=== PATIENT | male | born 1945 | race Caucasian/White ===

== ENCOUNTER 2023-06-08 06:10 | Day surgery (SDC) | payer MEDICARE, OTHER, SELFPAY ==
[2023-06-01 10:26] VITALS: BMI 43.1
[2023-06-08] VITALS (9 sets, daily range): BP systolic 109–148; BP diastolic 42–60
[2023-06-08] MEDS: NSS 500 IV (07:22)
--- NOTE | 2023-06-08 10:23 | ITS.CL.PACE ---
[employer] - Pacemaker Implant
Pacemaker Implant
Procedure Report:
Date of Procedure: June 08, 2023.
Procedures: Dual chamber pacemaker generator change. Pacemaker pulse generator explantation and pacemaker pulse generator implantation.
Indication: Pacemaker at [facility] from natural battery depletion. 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 The patient is pacemaker dependent.
Performing physician: Bobby Leija MD, [facility].
Implant: Pacemaker Pulse Generator: Medtronic; Model# W1DR01; Serial# [id number].
Explanted Pacemaker Pulse Generator (Implanted January 06, 2014): Medtronic; Model# [id number]; Serial# [id number].
Retained Leads (Implanted January 06, 2014):
RA Lead: Medtronic; Model# 5076-52cm; Serial# [id number].
RV Lead: Medtronic; Model# 5076-58cm; Serial# [id number].
Technique: A time out was performed. The procedure site was identified. The patient was anesthetized by the anesthesia service. Preoperative cefazolin was administered prior to skin incision. The patient was prepped and draped in the usual fashion.
Local anesthetic was applied to the left prepectoral subcutaneous tissue. A 3 inch incision was made over the pulse generator. The capsule was entered with Bovie cautery. The old pacemaker pulse generator was explanted. No Bovie cautery was applied
to the lead system. The leads were appropriately attached to the new device. The pocket was irrigated with antibiotic solution. Hemostasis was excellent. The device and leads were placed in the pocket. The incision was closed in three layers with
absorbable suture. Steri-strips and an Aquacel dressing were applied. The estimated blood loss was 1 mL. There were no complications. No fluoroscopy.
Lead Analysis:
RA lead: P: 4.4 mV; Threshold: 0.75 V @ 0.4 ms; Impedance: 490 ohms.
RV lead: R: n/a; Threshold: 0.75 V @ 0.4 ms; Impedance: 400 ohms.
Final Programming DDDR 60 - 130 bpm.
Conclusion: Uncomplicated Medtronic pacemaker change. The pacemaker system is MRI conditional. The patient is pacemaker dependent.
Recommendation: Routine post pacemaker care.
cc: Rory Swift MD and Eugenia Boyer MD.
== END 2023-06-08 11:05 | disposition home or self-care (01) ==
LOC: CATH 06:10
PROVIDERS: ATTENDING PHYSICIAN Internal Medicine Cardiovascular Disease; FAMILY PHYSICIAN Student in an Organized Health Care Education/Training Program; OTHER PHYSICIAN Internal Medicine Cardiovascular Disease
DX: Z45.010 Encounter for checking and testing of cardiac pacemaker pulse generator [battery] (principal); I44.2 Atrioventricular block, complete; I10 Essential (primary) hypertension; E78.5 Hyperlipidemia, unspecified; I47.10 Supraventricular tachycardia, unspecified; M19.90 Unspecified osteoarthritis, unspecified site; E03.9 Hypothyroidism, unspecified; Z87.891 Personal history of nicotine dependence; R73.03 Prediabetes; Z85.46 Personal history of malignant neoplasm of prostate; Z90.79 Acquired absence of other genital organ(s)
CPT/HCPCS: 33228; C1785

== ENCOUNTER → 2023-07-23 14:26 | Outpatient (REF) | payer MEDICARE, OTHER, SELFPAY ==
[2023-07-23 16:36] LABS: PSA, Total - Diagnostic 0.97 ng/ml (0.0-4.0)
== END ==
LOC: REG 14:26
PROVIDERS: ATTENDING PHYSICIAN Specialist; FAMILY PHYSICIAN Student in an Organized Health Care Education/Training Program
DX: C61 Malignant neoplasm of prostate (principal); R97.21 Rising PSA following treatment for malignant neoplasm of prostate
CPT/HCPCS: 36415; 84153

== ENCOUNTER → 2023-10-08 13:11 | Outpatient (REF) | payer MEDICARE, OTHER, SELFPAY ==
[2023-10-08 14:43] LABS: PSA, Total - Diagnostic 1.39 ng/ml (0.0-4.0)
== END ==
LOC: RAD 13:11
PROVIDERS: ATTENDING PHYSICIAN Specialist; FAMILY PHYSICIAN Student in an Organized Health Care Education/Training Program
DX: C61 Malignant neoplasm of prostate (principal)
CPT/HCPCS: 36415; 84153

== ENCOUNTER → 2023-10-22 08:31 | Outpatient (REF) | payer MEDICARE, OTHER, SELFPAY ==
[2023-10-22 10:02] LABS: % Basophils 0.4 % (0-2); % Eosinophils 2.5 % (0-6); % Immature Granulocytes 0.4 % (0-0.5); % Lymphocytes 27.5 % (20.5-51.1); % Monocytes 10.3 % (1.7-9.3); % Neutrophils 58.9 % (42.2-75.2); Absolute Eosinophils 0.2 10^3/uL (0-0.7); Absolute Lymphocytes 2.4 10^3/uL (1.2-3.4); Absolute Monocytes 0.9 10^3/uL (0.1-0.6); Absolute Neutrophils 5.1 10^3/uL (1.4-6.5); Hematocrit 38.4 % (39.0-52.0); Hemoglobin 12.8 g/dL (13.0-18.0); Mean Corp Hgb Conc. 33.3 g/dL (33.0-37.0); Mean Corpuscular Hgb 30.2 pg (27.0-31.0); Mean Corpuscular Volume 90.6 fL (80.0-94.0); Mean Platelet Volume 10.8 fL (7.4-10.4); Nucleated Red Blood Cells % 0 % (-); Platelet Count 231 10^3/uL (130-400); Red Blood Cell Count 4.24 10^6/uL (4.70-6.10); Red Cell Dist. Width 14.1 % (11.5-14.5); White Blood Cell Count 8.6 10^3/uL (4.8-10.8)
[2023-10-22 10:20] LABS: Iron 83 ug/dl (49-181)
[2023-10-22 10:29] LABS: Percent Saturation 27 % (20-50); Total Iron Binding Capacity 300 ug/dl (261-462)
[2023-10-22 11:12] LABS: Vitamin B12 247 pg/ml (239-931)
== END ==
LOC: REG 08:31
PROVIDERS: ATTENDING PHYSICIAN Student in an Organized Health Care Education/Training Program
DX: D53.9 Nutritional anemia, unspecified (principal)
CPT/HCPCS: 36415; 82607; 83540; 83550; 85025

== ENCOUNTER 2023-11-13 11:27 | Outpatient (RCR) | payer MEDICARE, OTHER, SELFPAY | END 2023-11-13 23:59 | disposition home or self-care (01) | LOC: RPT 11:27 | PROVIDERS: ATTENDING PHYSICIAN Specialist; FAMILY PHYSICIAN Student in an Organized Health Care Education/Training Program | DX: N39.41 Urge incontinence (principal); N39.3 Stress incontinence (female) (male); M62.89 Other specified disorders of muscle; Z73.6 Limitation of activities due to disability | CPT/HCPCS: 97112; 97162; 97530 ==

== ENCOUNTER 2024-01-01 11:59 | Outpatient (RCR) | payer MEDICARE, OTHER, SELFPAY | END 2024-01-01 23:59 | disposition home or self-care (01) | LOC: RPT 11:59 | PROVIDERS: ATTENDING PHYSICIAN Specialist; FAMILY PHYSICIAN Student in an Organized Health Care Education/Training Program | DX: N39.3 Stress incontinence (female) (male) (principal); M62.89 Other specified disorders of muscle; N39.41 Urge incontinence; Z73.6 Limitation of activities due to disability | CPT/HCPCS: 97530 ==

== ENCOUNTER 2024-01-20 07:41 | Emergency (ER) | payer MEDICARE, OTHER, SELFPAY ==
[2024-01-20 07:43] VITALS: BP 124/88
--- NOTE | 2024-01-20 07:58 | ED.GENMED ---
History of Present Illness
General
Chief Complaint: Anal/Rectal Problem
Source: patient
Exam Limitations: none
Time Seen by Provider: 01/20/24 07:57
Nursing documentation reviewed up to this point in time: agreed with
History of Present Illness
History of Present Illness:
Patient is a 78-year-old male past medical history of hypertension hyperlipidemia valve disorder who presents to the ER for evaluation of rectal bleeding. Patient reports he just had his internal hemorrhoids banded by Dr. Eubanks 2 weeks ago and
today had 2 episodes of bright red blood per rectum. He reports it dripped on his leg. Last night he had some pain with moving his bowels however noticed the blood today. He reports stool however last night was brown in color
Review of Systems
Review of Systems
Allergies reviewed?: Yes
All Other Systems: ROS reviewed and negative except as documented in HPI and ROS
Constitutional: Reports no symptoms; Denies fever, fatigue or chills
Respiratory: Reports no symptoms
Cardiac: Reports no symptoms
ABD/GI: Reports other (rectal bleeding x several episodes reports brown stool ); Denies abdominal pain, nausea or vomiting
Musculoskeletal: Reports no symptoms
Skin: Reports no symptoms
Neurological: Reports no symptoms
Hematologic/Lymphatic: Reports no symptoms
Phy Exam
General Physical Exam
General Presentation: no apparent distress
General age: appears stated age
General Skin: warm and dry
General Habitus: normal
General Mental: alert
General Hydration: appears well hydrated
Cardiovascular Exam
Cardiovascular Exam: regular rate/rhythm, no murmur and normal peripheral pulses
Pulmonary Exam
Pulmonary Exam: lungs clear and no respiratory distress
Gastrointestinal Exam
Gastrointestinal Exam: normal bowel sounds, non tender, soft and other (small visible hemorrhoids on exam no active bleeding )
Neurological Exam
Neurological Exam: alert and oriented x3
Musculoskeletal Exam
Musculoskeletal Exam: full ROM
Skin Exam
Skin Exam: normal color and warm/dry
Psychiatric Exam
Psychiatric Exam: normal mood/affect
Course
Orders/Labs/Results
Orders:
Orders
01/20/24 08:09
IV Insert/Care/Rem.- Treatment PRN
01/20/24 08:45
Complete Blood Count/With Diff Urgent
Comprehensive Metabolic Panel Urgent
Abnormal Lab Results
01/20/24
08:45
RBC 3.83 L 10^6/uL
(4.70-6.10)
Hgb 11.8 L g/dL
(13.0-18.0)
Hct 34.2 L %
(39.0-52.0)
Absolute Monos (auto) 0.8 H 10^3/uL
(0.1-0.6)
BUN 29 H mg/dl
(9-20)
Glucose 112 H mg/dl
(70-99)
01/20/24 08:45
01/20/24 08:45
Vital Signs
Initial and Last Documented VS:
Initial Vital Signs
Temp Pulse Resp BP Pulse Ox
98 F 85 16 124/88 97
01/20/24 07:43 01/20/24 07:43 01/20/24 07:43 01/20/24 07:43 01/20/24 07:43
Last Documented Vital Signs
Temp Pulse Resp BP Pulse Ox
98 F 64 17 119/54 97
01/20/24 07:43 01/20/24 08:45 01/20/24 08:45 01/20/24 08:32 01/20/24 08:45
MDM/Problems Addressed
Differential Diagnosis Includes:
Not limited to rectal bleed related to hemorrhoids/banding
MDM/Problems Addressed:
Patient is a 78-year-old male who reports 2.5 weeks ago he had his hemorrhoids banded by Dr. Eubanks however reported he had several episodes of rectal bleeding. On exam he has no bleeding. Patient is not on anticoagulation. Dr. Eubanks evaluated
patient in the ER no further bleeding nothing further to do. He denies any abdominal nausea vomiting hemoglobin is stable. He is mildly dehydrated but stable for discharge home I did review with patient he reports he will increase his water intake
. Discussed with patient to have his family doctor repeat blood work and return if any worsening of symptoms.
Chronic conditions affecting care:
Hypertension valve disorder
*Pulse Oximetry
Patient hypoxic: no
*Critical Care Note
Total Time (30-74mins, 75-104mins- exclusive of procedures): Not Applicable
Patient Management
Discussion with other providers: [employer]ender (DR Raimundo barnes )
ED Attending Note
-
Portions of this chart may have been created with voice recognition software.� Occasional wrong word or��sound alike� substitutions may have occurred due to the inherent limitations of voice recognition software.
Discharge Plan
Departure
Patient Disposition: Home (Routine Discharge)
Date of Disposition: 01/20/24
Time of Disposition: 10:04
Patient with high blood pressure during this ER visit?: No
Condition: Fair
Covid-19: Not Applicable
Discharge Problem:
Bright red rectal bleeding
Prescriptions:
No Action
multivitamin Tablet
1 tab PO DAILY
furosemide 40 mg Tablet
40 mg PO DAILY
atorvastatin 20 mg Tablet
20 mg PO QPM
lisinopril [Zestril] 20 mg Tablet
20 mg PO DAILY
levothyroxine 100 mcg Tablet
100 mcg PO DAILY
baclofen 10 mg Tablet
10 mg PO QPM
cholecalciferol (vitamin D3) [Vitamin D3] 50 mcg (2,000 unit) Tablet
50 mcg PO QPM
furosemide [Lasix] 40 mg Tablet
40 mg PO PRN PRN (Reason: extra dose if needed )
acetaminophen 500 mg Tablet
1,000 mg PO Q6H PRN (Reason: pain)
nifedipine 60 mg Tablet Extended Release
60 mg PO DAILY
cephalexin 500 mg capsule
500 mg PO Q8H Qty: 3 0RF
Rx Instructions:
Starting at 2pm
Referrals:
Jaime Eubanks MD [Active] -
Eugenia Boyer MD [Family Provider] -
Activity Restrictions/Additional Instructions:
You were seen here today for rectal bleeding however symptoms have resolved. Your hemoglobin is stable. Follow-up with Dr. Eubanks as needed and follow-up with your family doctor return if any worsening of symptoms.
Also as discussed your blood work reveals that you are dehydrated, as discussed please increase water intake and have your blood work rechecked by your family doctor.
Interventions
Interventions:
*Risk Screen - Suicide Last Done: 01/20/24 07:45
*General Assessment Last Done: 01/20/24 08:34
*Neglect/Abuse Screening Last Done: 01/20/24 07:45
ED- Fall Risk Assessment Last Done: 01/20/24 08:28
*ED COVID-19 Vaccine History Last Done: 01/20/24 08:28
UR-Jynehf-Qfnjizqhmn Assessment Last Done: 01/20/24 08:28
Discharge Date and Time
Print Language: HONDURAN
[2024-01-20 08:32] VITALS: BP 119/54
[2024-01-20 08:36] VITALS: BMI 43.7
--- NOTE | 2024-01-20 08:50 | EDRN ---
Received patient on stretcher. Patient stated that he had his hemorrhoids banded 2.5 weeks ago and still has not passed the bands. Patient stated that he has developed more rectal bleeding this morning. Denies having to strain when he moves his
bowels. Last BM last night.
[2024-01-20 08:54] LABS: % Basophils 0.4 % (0-2); % Eosinophils 2.1 % (0-6); % Immature Granulocytes 0.4 % (0-0.5); % Lymphocytes 20.6 % (20.5-51.1); % Monocytes 9.2 % (1.7-9.3); % Neutrophils 67.3 % (42.2-75.2); Absolute Eosinophils 0.2 10^3/uL (0-0.7); Absolute Lymphocytes 1.7 10^3/uL (1.2-3.4); Absolute Monocytes 0.8 10^3/uL (0.1-0.6); Absolute Neutrophils 5.7 10^3/uL (1.4-6.5); Hematocrit 34.2 % (39.0-52.0); Hemoglobin 11.8 g/dL (13.0-18.0); Mean Corp Hgb Conc. 34.5 g/dL (33.0-37.0); Mean Corpuscular Hgb 30.8 pg (27.0-31.0); Mean Corpuscular Volume 89.3 fL (80.0-94.0); Nucleated Red Blood Cells % 0 % (-); Platelet Count 253 10^3/uL (130-400); Red Blood Cell Count 3.83 10^6/uL (4.70-6.10); White Blood Cell Count 8.4 10^3/uL (4.8-10.8)
[2024-01-20 09:00] VITALS: BP 117/46
[2024-01-20 09:07] LABS: ALT (SGPT) 16 U/L (0-50); AST (SGOT) 24 U/L (17-59); Albumin 4.1 g/dl (3.5-5.0); Alkaline Phosphatase 95 U/L (38-126); Blood Urea Nitrogen 29 mg/dl (9-20); Calcium 9.5 mg/dl (8.4-10.2); Carbon Dioxide 28 mmol/L (22-30); Chloride 103 mmol/L (98-107); Estimated Creatinine Clearance 83 ml/min; Glucose 112 mg/dl (70-99); Potassium 4.2 mmol/L (3.5-5.1); Sodium 141 mmol/L (135-145); Total Bilirubin 0.5 mg/dl (0.2-1.3); Total Protein 6.5 g/dl (6.3-8.2); eGFR > 60.00
[2024-01-20 10:00] VITALS: BP 115/41
== END 2024-01-20 10:33 | disposition home or self-care (01) ==
LOC: EMR 07:41
PROVIDERS: Nurse Practitioner; EMERGENCY PHYSICIAN Emergency Medicine; FAMILY PHYSICIAN Student in an Organized Health Care Education/Training Program
DX: K62.5 Hemorrhage of anus and rectum (principal); E86.0 Dehydration; I10 Essential (primary) hypertension; E78.5 Hyperlipidemia, unspecified
CPT/HCPCS: 99283; 80053; 85025

== ENCOUNTER 2024-03-07 08:49 | Outpatient (RCR) | payer MEDICARE, OTHER, SELFPAY | END 2024-03-07 23:59 | disposition home or self-care (01) | LOC: RPT 08:49 | PROVIDERS: ATTENDING PHYSICIAN Specialist; FAMILY PHYSICIAN Student in an Organized Health Care Education/Training Program | DX: N39.46 Mixed incontinence (principal); M62.89 Other specified disorders of muscle; Z73.6 Limitation of activities due to disability | CPT/HCPCS: 97140; 97530 ==

== ENCOUNTER → 2024-04-03 14:22 | Outpatient (REF) | payer MEDICARE, OTHER, SELFPAY ==
[2024-04-03 16:40] LABS: PSA, Total - Diagnostic 0.87 ng/ml (0.0-4.0)
== END ==
LOC: REG 14:22
PROVIDERS: ATTENDING PHYSICIAN Specialist; FAMILY PHYSICIAN Student in an Organized Health Care Education/Training Program
DX: C61 Malignant neoplasm of prostate (principal); R97.21 Rising PSA following treatment for malignant neoplasm of prostate
CPT/HCPCS: 36415; 84153

== ENCOUNTER 2024-05-30 13:57 | Outpatient (RCR) | payer MEDICARE, OTHER, SELFPAY | END 2024-05-30 23:59 | disposition home or self-care (01) | LOC: RPT 13:57 | PROVIDERS: ATTENDING PHYSICIAN Specialist; FAMILY PHYSICIAN Student in an Organized Health Care Education/Training Program | DX: N39.3 Stress incontinence (female) (male) (principal); N39.46 Mixed incontinence (principal); M62.89 Other specified disorders of muscle; N39.41 Urge incontinence; Z73.6 Limitation of activities due to disability | CPT/HCPCS: 97140; 97530 ==

== ENCOUNTER → 2024-06-17 15:16 | Outpatient (REF) | payer MEDICARE, OTHER, SELFPAY | LOC: RCS 15:16 | PROVIDERS: ATTENDING PHYSICIAN Internal Medicine Cardiovascular Disease; FAMILY PHYSICIAN Student in an Organized Health Care Education/Training Program | DX: R06.02 Shortness of breath (principal) | CPT/HCPCS: 93306 ==

== ENCOUNTER 2024-06-24 12:45 | Emergency (ER) | payer MEDICARE, OTHER, SELFPAY ==
[2024-06-24 12:49] VITALS: BP 168/67
--- NOTE | 2024-06-24 14:43 | ED.GENMED ---
History of Present Illness
General
Chief Complaint: Fall
Source: patient
Exam Limitations: none
Time Seen by Provider: 06/24/24 14:27
Nursing documentation reviewed up to this point in time: agreed with
History of Present Illness
History of Present Illness:
Patient presents to ED secondary to persistent neck/upper back pain, after he lost balance and fell backwards, while visiting his in the hospital this afternoon. Patient states that he was helping his sit up in bed, and was leaning on the
table, which moved forward, causing him to lose balance and fall backwards. Patient denies hitting his head, as he tried to bend his neck forward, to prevent from hitting his head. Denies loss of sensation or weakness. Denies headache. Denies
nausea or vomiting. Denies dizziness. Denies loss of sensation or weakness. Denies any other injuries from the fall.
Review of Systems
Review of Systems
Allergies reviewed?: Yes
All Other Systems: ROS reviewed and negative except as documented in HPI and ROS
Constitutional: Reports no symptoms; Denies fever
Respiratory: Reports no symptoms; Denies trouble breathing
Cardiac: Reports no symptoms; Denies chest pain
ABD/GI: Reports no symptoms
Musculoskeletal: Reports neck pain and back pain
Skin: Reports no symptoms
Neurological: Denies dizzy, headache, weakness or numbness
Phy Exam
Physical Exam
Physical Exam:
Physical Exam
General: no apparent distress, not acutely ill. afebrile.
Head: nc/at. eomi
Neck: supple. normal range of motion. mild base of neck tenderness, diffuse, nonfocal.
Heart: s1/s2 regular rate and rhythm
Lungs: no acute respiratory distress. clear bilaterally. chest wall nontender to palpation
Abdomen: normal bowel sounds. not tender.
Neuro: alert and oriented x 3. no focal neurological deficits
Skin: no rash
Psychiatric: well kept. interactive and cooperative
Extremities: no edema. no calf tenderness. normal range of motion b/l shoulder
Course
Orders/Labs/Results
Orders:
Orders
06/24/24 14:54
CT Cervical Spine W/o Iv Contr Urgent
Comment:
Reason For Exam: trauma
CT Head W/o Iv Contrast Urgent
Comment:
Reason For Exam: trauma to back of head
Acetaminophen [Tylenol] 650 mg PO NOW STA
Vital Signs
Initial and Last Documented VS:
Initial Vital Signs
Temp Pulse Resp BP Pulse Ox
97.8 F 78 16 168/67 95
06/24/24 12:49 06/24/24 12:49 06/24/24 12:49 06/24/24 12:49 06/24/24 12:49
Last Documented Vital Signs
Temp Pulse Resp BP Pulse Ox
97.8 F 80 18 164/70 95
06/24/24 12:49 06/24/24 18:07 06/24/24 18:07 06/24/24 18:07 06/24/24 18:07
MDM/Problems Addressed
MDM/Problems Addressed:
CT head/CT cervical spine: no acute findings, but with likely chronic findings, i.e. arthritis, disc disease, herniated disc. Advised follow-up with PCP for reevaluation and to discuss CT findings. Patient otherwise is hemodynamically stable and
neurologically intact, at time of discharge.
*Critical Care Note
Total Time (30-74mins, 75-104mins- exclusive of procedures): Not Applicable
ED Attending Note
-
Portions of this chart may have been created with voice recognition software.� Occasional wrong word or��sound alike� substitutions may have occurred due to the inherent limitations of voice recognition software.
Discharge Plan
Departure
Patient Disposition: Home (Routine Discharge)
Date of Disposition: 06/24/24
Time of Disposition: 17:08
Patient with high blood pressure during this ER visit?: Yes
Condition: Good
Discharge Problem:
Neck pain
Instructions: Neck pain - ED discharge instructions
Prescriptions:
No Action
multivitamin Tablet
1 tab PO DAILY
furosemide 40 mg Tablet
40 mg PO DAILY
atorvastatin 20 mg Tablet
20 mg PO QPM
lisinopril [Zestril] 20 mg Tablet
20 mg PO DAILY
levothyroxine 100 mcg Tablet
100 mcg PO DAILY
baclofen 10 mg Tablet
10 mg PO QPM
cholecalciferol (vitamin D3) [Vitamin D3] 50 mcg (2,000 unit) Tablet
50 mcg PO QPM
furosemide [Lasix] 40 mg Tablet
40 mg PO PRN PRN (Reason: extra dose if needed )
acetaminophen 500 mg Tablet
1,000 mg PO Q6H PRN (Reason: pain)
nifedipine 60 mg Tablet Extended Release
60 mg PO DAILY
cephalexin 500 mg capsule
500 mg PO Q8H Qty: 3 0RF
Rx Instructions:
Starting at 2pm
Referrals:
Eugenia Boyer MD [Family Provider] -
Activity Restrictions/Additional Instructions:
As discussed, please follow-up with your primary care physician for reevaluation, including CT findings discussed.
Interventions
Interventions:
*Risk Screen - Suicide Last Done: 06/24/24 12:50
*General Assessment Last Done: 06/24/24 13:17
*Neglect/Abuse Screening Last Done: 06/24/24 12:50
*ED COVID-19 Vaccine History Last Done: 06/24/24 13:17
*Nursing Disposition Last Done: 06/24/24 18:07
ED-Musculoskeletal Assessment Last Done: 06/24/24 13:17
ED- Neurological Assessment Last Done: 06/24/24 13:17
ED-Skin Assessment Last Done: 06/24/24 13:17
Discharge Date and Time
Discharge Date/Time: 06/24/24 18:08
Print Language: PUERTO RICAN
[2024-06-24] MEDS: TYLENOL 650 MG PO (15:22)
[2024-06-24 18:07] VITALS: BP 164/70
== END 2024-06-24 18:08 | disposition home or self-care (01) ==
LOC: EMR 12:45
PROVIDERS: EMERGENCY PHYSICIAN Emergency Medicine; FAMILY PHYSICIAN Student in an Organized Health Care Education/Training Program
DX: M54.2 Cervicalgia (principal); W01.190A Fall on same level from slipping, tripping and stumbling with subsequent striking against furniture, initial encounter; R03.0 Elevated blood-pressure reading, without diagnosis of hypertension
CPT/HCPCS: 99284; 70450; 72125

== ENCOUNTER → 2024-06-25 10:39 | Outpatient (REF) | payer MEDICARE, OTHER, SELFPAY ==
[2024-06-25 12:29] LABS: PSA, Total - Diagnostic 1.89 ng/ml (0.0-4.0)
== END ==
LOC: REG 10:39
PROVIDERS: ATTENDING PHYSICIAN Specialist; FAMILY PHYSICIAN Student in an Organized Health Care Education/Training Program
DX: C61 Malignant neoplasm of prostate (principal)
CPT/HCPCS: 36415; 84153

== ENCOUNTER 2024-07-01 12:01 | Outpatient (RCR) | payer MEDICARE, OTHER, SELFPAY | END 2024-07-01 23:59 | disposition home or self-care (01) | LOC: RPT 12:01 | PROVIDERS: ATTENDING PHYSICIAN Specialist; FAMILY PHYSICIAN Student in an Organized Health Care Education/Training Program | DX: N39.3 Stress incontinence (female) (male) (principal); M62.89 Other specified disorders of muscle; N39.41 Urge incontinence; Z73.6 Limitation of activities due to disability; N39.46 Mixed incontinence | CPT/HCPCS: 97140; 97530 ==

== ENCOUNTER → 2024-07-02 08:00 | Outpatient (REF) | payer MEDICARE, OTHER, SELFPAY | LOC: RAD 08:00 | PROVIDERS: ATTENDING PHYSICIAN Nurse Practitioner Gerontology; FAMILY PHYSICIAN Student in an Organized Health Care Education/Training Program | DX: Z95.0 Presence of cardiac pacemaker (principal); I70.90 Unspecified atherosclerosis; I67.2 Cerebral atherosclerosis | CPT/HCPCS: 93880 ==

== ENCOUNTER → 2024-09-09 09:56 | Outpatient (REF) | payer MEDICARE, OTHER, SELFPAY ==
[2024-09-09 10:52] LABS: % Basophils 0.4 % (0-2); % Eosinophils 3.8 % (0-6); % Immature Granulocytes 0.5 % (0-0.5); % Lymphocytes 26.2 % (20.5-51.1); % Monocytes 9.6 % (1.7-9.3); % Neutrophils 59.5 % (42.2-75.2); Absolute Eosinophils 0.3 10^3/uL (0-0.7); Absolute Lymphocytes 2.1 10^3/uL (1.2-3.4); Absolute Monocytes 0.8 10^3/uL (0.1-0.6); Absolute Neutrophils 4.7 10^3/uL (1.4-6.5); Hematocrit 34.9 % (39.0-52.0); Hemoglobin 11.4 g/dL (13.0-18.0); Mean Corp Hgb Conc. 32.7 g/dL (33.0-37.0); Mean Corpuscular Hgb 29.6 pg (27.0-31.0); Mean Corpuscular Volume 90.6 fL (80.0-94.0); Mean Platelet Volume 10.2 fL (7.4-10.4); Nucleated Red Blood Cells % 0 % (-); Platelet Count 257 10^3/uL (130-400); Red Blood Cell Count 3.85 10^6/uL (4.70-6.10); Red Cell Dist. Width 14.6 % (11.5-14.5)
[2024-09-09 11:25] LABS: ALT (SGPT) 17 U/L (0-50); AST (SGOT) 22 U/L (17-59); Albumin 4.1 g/dl (3.5-5.0); Alkaline Phosphatase 97 U/L (38-126); Blood Urea Nitrogen 31 mg/dl (9-20); Calcium 9.3 mg/dl (8.4-10.2); Carbon Dioxide 26 mmol/L (22-30); Chloride 109 mmol/L (98-107); Glucose 105 mg/dl (70-99); HDL Cholesterol 38 mg/dl; LDL Cholesterol, Calculated 62 mg/dl; Potassium 4.6 mmol/L (3.5-5.1); Sodium 141 mmol/L (135-145); Total Bilirubin 0.4 mg/dl (0.2-1.3); Total Cholesterol 117 mg/dl (50-199); Total Protein 6.8 g/dl (6.3-8.2); Triglyceride 86 mg/dl (10-149); Very Low Density Lipoprotein 17 mg/dl (0-30); eGFR > 60.00
[2024-09-09 11:44] LABS: TSH Reflex To Free T4 2.32 uIU/ml (0.47-4.68)
== END ==
LOC: REG 09:56
PROVIDERS: ATTENDING PHYSICIAN Student in an Organized Health Care Education/Training Program
DX: Z00.00 Encounter for general adult medical examination without abnormal findings (principal); E78.49 Other hyperlipidemia; Z68.41 Body mass index [BMI] 40.0-44.9, adult; I89.0 Lymphedema, not elsewhere classified; N28.9 Disorder of kidney and ureter, unspecified; E03.9 Hypothyroidism, unspecified; R73.03 Prediabetes
CPT/HCPCS: 36415; 80053; 80061; 83036; 84443; 85025

== ENCOUNTER 2024-12-17 06:04 | Day surgery (SDC) | payer MEDICARE, OTHER, SELFPAY ==
[2024-12-17] VITALS (9 sets, daily range): BP systolic 127–145; BP diastolic 45–81; BMI 40.4
[2024-12-17 06:56] LABS: Glucose - Point of Care 109 mg/dl (70-99)
[2024-12-17] MEDS: NORMOSOL-R/PLASMALYTE-A 1000 IV (07:09)
[2024-12-17] MEDS: TYLENOL 1000 MG PO (07:09)
== END 2024-12-17 10:12 | disposition home or self-care (01) ==
LOC: SDS 06:04
PROVIDERS: ATTENDING PHYSICIAN Surgery
DX: K64.9 Unspecified hemorrhoids (principal)
CPT/HCPCS: 46260; 82962

== ENCOUNTER → 2024-12-30 15:31 | Outpatient (REF) | payer MEDICARE, OTHER, SELFPAY ==
[2024-12-30 17:09] LABS: PSA, Total - Diagnostic 1.71 ng/ml (0.0-4.0)
== END ==
LOC: REG 15:31
PROVIDERS: ATTENDING PHYSICIAN Specialist; FAMILY PHYSICIAN Student in an Organized Health Care Education/Training Program
DX: C61 Malignant neoplasm of prostate (principal); R97.21 Rising PSA following treatment for malignant neoplasm of prostate
CPT/HCPCS: 36415; 84153

== ENCOUNTER → 2025-03-05 14:35 | Outpatient (REF) | payer MEDICARE, OTHER, SELFPAY | LOC: REG 14:35 | PROVIDERS: ATTENDING PHYSICIAN Student in an Organized Health Care Education/Training Program | DX: E03.9 Hypothyroidism, unspecified (principal) | CPT/HCPCS: 36415; 84443 ==